=== PATIENT | female | born 1945 | race Caucasian/White ===

== ENCOUNTER → 2023-07-30 11:10 | Outpatient (REF) | payer MEDICARE, OTHER, SELFPAY | LOC: RAD 11:10 | PROVIDERS: ATTENDING PHYSICIAN Family Medicine; FAMILY PHYSICIAN Family Medicine | DX: K06.9 Disorder of gingiva and edentulous alveolar ridge, unspecified (principal); R05.3 Chronic cough | CPT/HCPCS: 71046 ==

== ENCOUNTER → 2023-08-10 10:35 | Outpatient (REF) | payer MEDICARE, OTHER, SELFPAY | LOC: MRI 3T 10:35 | PROVIDERS: ATTENDING PHYSICIAN Internal Medicine Gastroenterology; FAMILY PHYSICIAN Family Medicine | DX: K86.2 Cyst of pancreas (principal) | CPT/HCPCS: 74183; A9575 ==

== ENCOUNTER → 2024-03-10 07:52 | Outpatient (REF) | payer MEDICARE, OTHER, SELFPAY | LOC: DHCBC/DCA 07:52 | PROVIDERS: ATTENDING PHYSICIAN Internal Medicine Cardiovascular Disease; FAMILY PHYSICIAN Family Medicine | DX: R06.09 Other forms of dyspnea (principal) | CPT/HCPCS: 78452; 93017; A9500 ==

== ENCOUNTER → 2024-04-21 09:28 | Outpatient (REF) | payer MEDICARE, OTHER, SELFPAY | LOC: RAD 09:28 | PROVIDERS: ATTENDING PHYSICIAN Internal Medicine Critical Care Medicine; FAMILY PHYSICIAN Family Medicine | DX: J41.1 Mucopurulent chronic bronchitis (principal); R91.1 Solitary pulmonary nodule | CPT/HCPCS: 71250 ==

== ENCOUNTER → 2024-07-23 08:48 | Outpatient (REF) | payer MEDICARE, OTHER, SELFPAY | LOC: HWRAD 08:48 | PROVIDERS: ATTENDING PHYSICIAN Family Medicine | DX: R22.31 Localized swelling, mass and lump, right upper limb (principal); M85.89 Other specified disorders of bone density and structure, multiple sites | CPT/HCPCS: 76882; 77080 ==

== ENCOUNTER → 2024-08-14 20:00 | Outpatient (REF) | payer MEDICARE, OTHER, SELFPAY | LOC: MRI 3T 20:00 | PROVIDERS: ATTENDING PHYSICIAN Internal Medicine Gastroenterology; FAMILY PHYSICIAN Family Medicine | DX: K86.2 Cyst of pancreas (principal); M54.16 Radiculopathy, lumbar region | CPT/HCPCS: 72148 ==

== ENCOUNTER 2024-11-14 06:26 | Day surgery (SDC) | payer MEDICARE, OTHER, SELFPAY | END 2024-11-14 12:45 | disposition home or self-care (01) | LOC: GI 06:26 | PROVIDERS: ATTENDING PHYSICIAN Internal Medicine Gastroenterology | DX: R93.3 Abnormal findings on diagnostic imaging of other parts of digestive tract (principal); K31.89 Other diseases of stomach and duodenum; K22.89 Other specified disease of esophagus | CPT/HCPCS: 43239; 88305; 88342 ==

== ENCOUNTER 2025-02-18 08:00 | Inpatient (IN) | payer MEDICARE, OTHER, SELFPAY ==
[2025-01-26 11:24] LABS: Hematocrit 42.2 % (37.0-47.0); Hemoglobin 14.2 g/dL (12.0-16.0); Mean Corp Hgb Conc. 33.6 g/dL (33.0-37.0); Mean Corpuscular Volume 89.4 fL (81.0-99.0); Nucleated Red Blood Cells % 0 %; Platelet Count 248 10^3/uL (130-400); Red Cell Dist. Width 13.2 % (11.5-14.5)
[2025-01-26 12:17] LABS: ALT (SGPT) 26 U/L (0-35); AST (SGOT) 32 U/L (14-36); Albumin 4.6 g/dl (3.5-5.0); Alkaline Phosphatase 93 U/L (38-126); Blood Urea Nitrogen 18 mg/dl (7-17); Calcium 10.1 mg/dl (8.4-10.2); Carbon Dioxide 30 mmol/L (22-30); Chloride 103 mmol/L (98-107); Glucose 116 mg/dl (70-99); HDL Cholesterol 57 mg/dl; LDL Cholesterol, Calculated 78 mg/dl; Potassium 4.2 mmol/L (3.5-5.1); Sodium 139 mmol/L (135-145); Total Protein 7.2 g/dl (6.3-8.2); Very Low Density Lipoprotein 42 mg/dl (0-30); eGFR > 60.00
[2025-01-26 12:21] LABS: Glycohemoglobin (HgbA1c) 5.9 % (4.0-5.6)
[2025-01-26 12:31] LABS: TSH 0.90 uIU/ml (0.47-4.68)
[2025-01-26 13:06] LABS: Folate > 20.0 ng/ml (2.76-20); Vitamin B12 786 pg/ml (239-931)
[2025-01-26 14:27] VITALS: BMI 26.5
[2025-01-26 14:39] VITALS: BMI 26.5
--- NOTE | 2025-02-03 13:36 | CM ---
Demographics: confirmed
Living situation: Lives with
Support Person Post Operatively:
History of
VN: No
SNF: No
Outpatient: Comprehensive, patient will make appointment for 02/20
Has patient purchased required equipment: walker, cane, raised toilet seat,
PCP: Christiana
Pharmacy: [facility]
Post Operative Discharge Plan: Home with outpatient PT.
[2025-02-18] VITALS (18 sets, daily range): BP systolic 71–145; BP diastolic 43–88; PULSE 60; O2SAT 96
[2025-02-18] MEDS: CELEBREX 200 MG PO (07:43)
[2025-02-18] MEDS: TYLENOL 650 MG PO ×3 (07:43→19:45)
--- NOTE | 2025-02-18 09:47 | W.PN.UPDATE ---
Update Note
Progress Note Update
L hip OA s/p L SCOTTY w/ Dr Cordero 02/18/25
- EARLY DISCHARGE
DVT prophylaxis - ASA, b/l venous foot pumps
HTN - + parameters - monitor BP
SOLO, intolerant to device - monitor O2
- IS
- Add supplemental O2 HS
GERD - continue PPI
IBS-C - continue home Miralax w/ our standard bowel regimen of Colace and Senna
- Adequate hydration, early mobility as tolerated, and the minimization of opioids were discussed salvador-op
HLD
Chronically abnormal EKG
Mild valvular disease
Pulm nodule
Thyroid nodule
Hypothyroidism
Depression
Anxiety
Osteopenia
[2025-02-18] MEDS: DILAUDID 0.25 MG IV ×3 (11:08→13:14)
[2025-02-18] MEDS: DILAUDID 0.5 MG IV ×3 (11:44→19:55)
[2025-02-18] MEDS: ROXICODONE 5 MG PO (12:27)
[2025-02-18] MEDS: NORMOSOL-R/PLASMALYTE-A 1000 IV ×2 (13:44→17:17)
[2025-02-18] MEDS: MIRALAX 17 GRAMS PO (14:16)
[2025-02-18] MEDS: PROTONIX 40 MG PO (14:16)
[2025-02-18] MEDS: VITAMIN D3 (cholecalciferol) 25 MCG PO (14:17)
[2025-02-18] MEDS: ANCEF 5 IV (17:17)
[2025-02-18] MEDS: ASPIRIN 325 MG PO (17:17)
[2025-02-18] MEDS: LEXAPRO 5 MG PO (17:17)
[2025-02-18] MEDS: LIPITOR 80 MG PO (17:17)
[2025-02-18] MEDS: ORETIC 12.5 MG PO (17:20)
--- NOTE | 2025-02-18 18:28 | OR.RPT ---
Operative Report
Operative Report
Orthopaedic Surgery Operative Note
DATE OF OPERATION: 02/18/2025
PREOPERATIVE DIAGNOSES: Osteoarthritis, left hip
POSTOPERATIVE DIAGNOSES: Same
OPERATION PERFORMED: Left total hip arthroplasty.
SURGEON: Joaquín Cordero MD
EQUIPMENT INSTALLER: Srinivasan Lindquist PA-C who helped with patient and limb positioning and retraction
ANESTHESIA: Spinal
COMPLICATIONS: None.
ESTIMATED BLOOD LOSS: 75 mL.
DRAINS: None
SPECIMEN: None
FINDINGS: Advanced articular cartilage wear on the femoral head and acetabulum.
IMPLANTS:
Biomet G7 Acetabular Shell, cluster hole, size 52
Biomet G7 Highly Crosslinked PE Liner, neutral
Kris M/L Taper femoral stem, size 9 with standard neck length and standard offset
Biolox Ceramic Head, size 36mm -3.5mm
INDICATIONS: The patient presented to my office with debilitating left hip pain due to osteoarthritis. We reviewed the natural history of this problem, as well as the risks, benefits, and alternatives of various treatment options. The patient
exhausted all nonoperative treatment options and wished to proceed with hip replacement surgery. The patient understood the risks which included, but were not limited to, bleeding, infection, failure to relieve pain, more pain than preop, damage to
blood vessels and nerves, need for reoperation, mechanical failure of the implants, wound healing problems, stiffness, instability, blood clot, pulmonary embolism, myocardial infarction, pneumonia, arrhythmia, CVA, and . The patient accepted
these risks and wished to proceed. All questions were answered, and informed consent was obtained.
PROCEDURE IN DETAIL: The patient was identified in the preoperative holding area. The left hip was identified as the operative site. The patient was taken in the operating room and transferred to the operative table. Spinal anesthesia was performed.
IV antibiotics and tranexamic acid were administered. The patient was placed in the lateral position with Stulberg hip positioners. Axillary roll was placed. The down leg was well padded. All bony prominences were well padded. The operative limb was
prepped and draped in the usual sterile fashion.
Time out was performed. A posterolateral approach to the hip was used. The skin incision was centered over the greater trochanter. This was taken down sharply through subcutaneous tissues. Meticulous hemostasis was achieved throughout the case with
electrocautery. We split the fascia ta in line with skin incision. I split the gluteus erma bluntly. We cauterized all crossing vessels as we split it. I palpated the sciatic nerve and made sure it was well posterior in the operative field. It
was protected throughout the case.
I performed a partial bursectomy to identify the short external rotators. The gluteus medius and minimus were identified and retracted anteriorly. I incised the piriformis tendon and conjoint tendon at their insertions. These were tagged for later
repair. I then performed a trapezoidal capsulotomy. The edges were tagged for later repair. I referenced the cut edge of the capsular flap to 2 fixed points on the greater trochanter for assistance with recreation of limb length and offset. I then
dislocated the hip posteriorly. I performed a femoral neck osteotomy approximately 5 mm above the lesser trochanter, as per preoperative templating. The femoral head measured 45 mm in outer diameter. The distance between the neck cut and center of
the femoral head was measured to be 35mm. I placed a curve hohmann retractor over the anterior lip of the acetabulum between the labrum and the anterior hip capsule. A second retractor was placed inferiorly just distal to the transverse acetabular
ligament. Circumferential view of the acetabulum was achieved. I incised the labrum and pulvinar with electrocautery. I started with a 47 mm reamer and reamed down to the medial wall. I then sequentially reamed up to a 51mm reamer. This gave a nice
bed of bleeding bone with excellent column support anteriorly and posteriorly. I impacted the acetabular shell in approximately 40 degrees of abduction and 20 degrees of anteversion. I matched the anteversion of the transverse acetabular ligament. I
also made sure that the anterior rim of the socket was not proud of the anterior wall to minimize the chance of iliopsoas tendinitis. I confirmed the cup was well-seated. I then impacted a neutral liner and confirmed it was well seated with the
locking mechanism.
On the femoral side, I use a box osteotome to open the starting point. I found the canal with a Charnley awl and a lateralizing reamer. I then used the Kris M/L taper broaches sequentially to prepare the femoral canal. The size 9 came to a stop at
the desired level and had excellent axial and rotational stability. We trialed with a trial ball head. The hip was taken through a complete range of motion. It was noted to be stable in extension without impingement. It was stable in the position of
sleep and in flexion with internal rotation. The limb length and offset were checked compared to the capsular flap and was appropriate. The measured length between the lesser trochanter and center of the femoral head was 37.5mm.
I removed the trials. I impacted the femoral implant to match the [place] version. It had excellent axial and rotational stability. Trial ball head was placed, and I reduced the hip and took the hip through a complete range of motion. There was no
impingement in external rotation and extension. Position of sleep was stable. At 90 degrees of flexion and slight adduction, the hip could be internally rotated to 90 degrees with no subluxation. I palpated the sciatic nerve, which was tension free
and unharmed. Based on our capsular flap measurement, we had restored the offset and leg length. The trial ball head was removed, and the final ball head was impacted onto a clean and dry Haq taper. The hip was reduced.
A dilute betadine soak was performed for approximately 3 minutes, and then the hip was copiously irrigated. I repaired the capsule, piriformis, and conjoint tendon with #2 Ethibond to drill holes in the greater trochanter. Local anesthetic was
injected. The fascia ta was closed with #1 PDS in running fashion. The subcutaneous tissues were closed with 2-0 PDS in running fashion. The skin was reapproximated with 3-0 Monocryl subcuticular suture. I placed a skin glue dressing followed by a
Mepilex Ag dressing. The patient awoke from anesthesia without difficulty. Sponge and instrument counts were correct x2 at the end of the case.
I was present and participated in the entire procedure. I checked leg length at the ankles after transfer on the bed which was equal. The patient was sent to the recovery room in stable condition.
Jack Cordero MD
[2025-02-18] MEDS: COLACE 100 MG PO (19:55)
[2025-02-18] MEDS: SENOKOT 17.2 MG PO (19:56)
[2025-02-18] MEDS: DECADRON 4 MG PO (19:56)
[2025-02-18] MEDS: BACTROBAN 2% OINTMENT 1 APPLIC NASAL (19:57)
[2025-02-18] MEDS: MELATONIN 5 MG PO (21:50)
[2025-02-18] MEDS: NEURONTIN 300 MG PO (21:50)
[2025-02-19] MEDS: ANCEF 5 IV (00:05)
[2025-02-19] MEDS: TYLENOL 650 MG PO ×3 (00:05→09:00)
[2025-02-19 03:00] VITALS: BP 112/56
[2025-02-19] MEDS: SYNTHROID 88 MCG PO (05:06)
[2025-02-19] MEDS: ROXICODONE 5 MG PO (05:06)
[2025-02-19 07:15] VITALS: BP 123/61
[2025-02-19 08:35] VITALS: BP 126/55; BP 132/65; PULSE 50; O2SAT 99
[2025-02-19] MEDS: ROXICODONE 10 MG PO (08:58)
[2025-02-19] MEDS: ORETIC PO (08:59)
[2025-02-19] MEDS: ASPIRIN 325 MG PO (08:59)
[2025-02-19] MEDS: SENOKOT 17.2 MG PO (08:59)
[2025-02-19] MEDS: MIRALAX 17 GRAMS PO (08:59)
[2025-02-19] MEDS: VITAMIN D3 (cholecalciferol) 25 MCG PO (08:59)
[2025-02-19] MEDS: PROTONIX 40 MG PO (08:59)
[2025-02-19] MEDS: COLACE 100 MG PO (09:00)
[2025-02-19] MEDS: BACTROBAN 2% OINTMENT 1 APPLIC NASAL (09:00)
[2025-02-19] MEDS: CELEBREX 200 MG PO (09:00)
[2025-02-19] MEDS: DECADRON 4 MG PO (09:00)
--- NOTE | 2025-02-19 09:30 | W.PN.ORTHO ---
Today's Communication / Plan
-
Await OT recs. Pt did well w/ PT today.
If remaining clinically stable, d/c early this AM.
Assessment
.
Distal Motor Intact: Yes
Dressing:
Clean, dry and intact.
Assessment:
L hip OA s/p Dmitry FAJARDO w/ Dr Cordero 02/18/25
- EARLY DISCHARGE
DVT prophylaxis - ASA, b/l venous foot pumps
HTN - + parameters - BPs overall stable
SOLO, intolerant to device - O2 stable on RA by POD 1
- IS
- Add supplemental O2 HS
GERD - continue PPI
IBS-C - continue home Miralax w/ our standard bowel regimen of Colace and Senna
- Adequate hydration, early mobility as tolerated, and the minimization of opioids were discussed salvador-op
- Of note, pt did report a small, hard BM prior to d/c
HLD
Chronically abnormal EKG
Mild valvular disease
Pulm nodule
Thyroid nodule
Hypothyroidism
Depression
Anxiety
Osteopenia
Plan
.
Surgery / Date: Dmitry FAJARDO w/ Dr Cordero 02/18/25
DVT Prophylaxis: Aspirin
Activity:
Out of bed.
PT/OT
Discharge Plan: Home w/ Outpatient PT
Subjective
.
.:
Patient examined resting in her chair.
Reports left hip pain after PT; however, is due for pain meds. Will medicate w/ Oxycodone.
Denies any other new significant complaints.
Eager for potential early d/c today.
Vital Signs and Labs
.
Vital Signs and Labs:
Lab Results
01/26/25 10:51
01/26/25 10:52
Temp Pulse Resp BP Pulse Ox
97.8 F 53 16 123/61 98
02/19/25 07:15 02/19/25 07:15 02/19/25 07:15 02/19/25 07:15 02/19/25 07:15
Non-invasive Hgb result: 12.0
Physical Exam
-
HEENT: No pallor, cyanosis, or jaundice. Throat clear.
NECK: Supple. No JVD.
RESPIRATORY: Lungs clear to auscultation.
CVS: S1, S2 normal. RRR.�
ABDOMEN: Soft, non-tender. No distension.
EXTREMITIES: Mild bruising along surgical incision. NTTP. Strength equal, no calf pain with palpation/dorsiflexion. Calves soft.
DRILL SHARPENER: AOx3. No focal deficits. design eng grossly intact
--- NOTE | 2025-02-19 09:37 | W.DS.TRANS ---
DC Summary - Emergency Medicine Physician Assistant
-
Discharge Instructions:
Discharge Diagnosis/Procedures L hip OA s/p L SCOTTY w/ Dr Cordero 02/18/25
Diet Regular
Additional Diets Adequate hydration, minimize opioids, and wear
TEDs stockings to prevent low blood pressure/
dizziness.
Activity With Walker,As tolerated
Driving Restrictions Not until seen by your Dr
Bathing Restrictions OK to Shower
Other Services PT
Wound Care Leave dressing on until seen by surgeon's office
for follow-up.
Instructions:
Stand-Alone Forms: Total Hip/Knee Replacement D/C
Changes to Home Medications: Yes
Discharge Medications:
DC Medications w/original date entered in [facility]
atorvastatin 80 mg tablet (Lipitor) 80 mg PO QPM High Cholesterol 03/29/21
pantoprazole 40 mg tablet,delayed release 40 mg PO DAILY Gastrointestinal Issue 03/29/21
cholecalciferol (vitamin D3) 25 mcg (1,000 unit) capsule (Vitamin D3) 25 mcg PO DAILY Supplement 01/23/25
escitalopram oxalate 5 mg tablet 5 mg PO QPM Mental Health/Anxiety 01/23/25
levothyroxine 88 mcg tablet 88 mcg PO DAILY Thyroid 01/23/25
linaclotide 72 mcg capsule (Linzess) 72 mcg PO DAILY 01/23/25
magnesium 1 tab PO DAILY 01/23/25
multivitamin 1 tab PO DAILY Supplement 01/23/25
polyethylene glycol 3350 17 gram oral powder packet (Miralax) 17 g PO DAILY Constipation 01/23/25
turmeric 1 tab PO AMHS 01/23/25
Held on 02/19/25. Instructions: Resume on 02/25/25.
celecoxib 200 mg capsule 200 mg PO DAILY Anti-inflammatory #14 caps 01/26/25
dexamethasone 4 mg tablet 4 mg PO BID inflammation #6 tabs 01/26/25
gabapentin 300 mg capsule 300 mg PO HS sleep/pain #10 caps 01/26/25
mupirocin 2 % topical ointment 1 applic topical BID infection prevention #1 tube 01/26/25
ondansetron 4 mg disintegrating tablet 4 mg PO Q6H PRN n/v #20 tabs 01/26/25
oxycodone 5 mg tablet 5 mg PO Q6H PRN 1 tab moderate pain, 2 tabs severe pain #30 tabs 01/26/25
acetaminophen 500 mg tablet (Acetaminophen Extra Strength) 1,000 mg (2 x 500 mg) PO Q6H #60 tabs 02/19/25
aspirin 325 mg tablet 325 mg PO DAILY #30 tabs 02/19/25
docusate sodium 100 mg capsule 100 mg PO BID #30 caps 02/19/25
losartan 50 mg-hydrochlorothiazide 12.5 mg tablet 1 tab PO DAILY Blood Pressure #1 tab 02/19/25
sennosides 8.6 mg tablet (Sola-kyleigh) 17.2 mg (2 x 8.6 mg) PO BID #30 tabs 02/19/25
Home Medication Changes
celecoxib 200 mg capsule 200 mg PO DAILY Anti-inflammatory #14 caps 01/26/25
dexamethasone 4 mg tablet 4 mg PO BID inflammation #6 tabs 01/26/25
gabapentin 300 mg capsule 300 mg PO HS sleep/pain #10 caps 01/26/25
mupirocin 2 % topical ointment 1 applic topical BID infection prevention #1 tube 01/26/25
ondansetron 4 mg disintegrating tablet 4 mg PO Q6H PRN n/v #20 tabs 01/26/25
oxycodone 5 mg tablet 5 mg PO Q6H PRN 1 tab moderate pain, 2 tabs severe pain #30 tabs 01/26/25
acetaminophen 500 mg tablet (Acetaminophen Extra Strength) 1,000 mg (2 x 500 mg) PO Q6H #60 tabs 02/19/25
aspirin 325 mg tablet 325 mg PO DAILY #30 tabs 02/19/25
docusate sodium 100 mg capsule 100 mg PO BID #30 caps 02/19/25
sennosides 8.6 mg tablet (Sola-kyleigh) 17.2 mg (2 x 8.6 mg) PO BID #30 tabs 02/19/25
Pending Results: No
[2025-02-19 09:49] VITALS: BP 124/59; PULSE 55; O2SAT 98
== END 2025-02-19 10:55 | disposition home or self-care (01) | DRG 470 ==
LOC: 2 SOUTH 08:00
PROVIDERS: ADMITTING PHYSICIAN Orthopaedic Surgery; FAMILY PHYSICIAN Family Medicine; REFERRING PHYSICIAN Internal Medicine Cardiovascular Disease
PROC: 0SRB03A Replacement of Left Hip Joint with Ceramic Synthetic Substitute, Uncemented, Open Approach (ICD-10-PCS; 2025-02-18)
DX: M16.12 Unilateral primary osteoarthritis, left hip (principal); I38 Endocarditis, valve unspecified; I10 Essential (primary) hypertension; G47.33 Obstructive sleep apnea (adult) (pediatric); K58.1 Irritable bowel syndrome with constipation; K21.9 Gastro-esophageal reflux disease without esophagitis; E78.5 Hyperlipidemia, unspecified; E04.1 Nontoxic single thyroid nodule; E03.9 Hypothyroidism, unspecified; F32.A Depression, unspecified; F41.9 Anxiety disorder, unspecified; R94.31 Abnormal electrocardiogram [ECG] [EKG]; M85.80 Other specified disorders of bone density and structure, unspecified site; R91.1 Solitary pulmonary nodule
CPT/HCPCS: 36415; 73502; 80053; 80061; 82607; 82746; 83036; 84443; 85025; 87070; 97110; 97116; 97163; 97167; 97530; 97535; C1776